=== PATIENT | male | born 1970 | race Native Hawaiian/Other Pacific Islander ===

== ENCOUNTER → 2022-04-29 | Outpatient (CLI) | payer BC ==
[2022-04-29 22:26] LABS: HCT 41.6 % (39.6-50.0); HGB 12.5 g/dL (13.0-17.0); MCH 26.4 pg (27.0-32.0); MCV 87.8 fL (80.0-97.0); Mean Platelet Volume 10.9 fL (9.5-12.2); NRBC Per 100 WBC 0 /100 WBCS (0.0-0.0); Platelet Count 249 X 10*3/uL (140-440); RBC 4.74 X 10*6/uL (4.40-5.60); WBC 7.82 X 10*3/uL (4.50-10.00)
[2022-04-29 22:44] LABS: African American GFR (CKD) 121.5 (60.0-200.0); Anion Gap 11.6 mmol/L (10.00-18.00); Blood Urea Nitrogen 14.4 mg/dL (9.0-27.0); Carbon Dioxide 25.5 mmol/L (20.0-27.5); Non-African American GFR(CKD) 104.8 (60.0-200.0)
== END | disposition home or self-care (01) ==
LOC: LABPAT 14:02
PROVIDERS: ATTEND Internal Medicine Interventional Cardiology
DX: Z01.812 Encounter for preprocedural laboratory examination (principal); R06.02 Shortness of breath
CPT/HCPCS: 80051; 82565; 84520; 85027

== ENCOUNTER 2022-05-04 12:50 | Day surgery (SDC) | payer BC ==
[2022-05-02 11:27] VITALS: BMI 39.5
[~2022-05-04 12:50] MED LIST: ALPRAZolam 0.25 MG TAB PO PRN; ALPRAZolam 0.5 MG TAB PO PRN; ASPIRIN 325 MG TAB PO STA; ATORVASTATIN 80 MG TAB PO STA; HEPARIN SODIUM,PORCINE 10,000 UNIT in SODIUM CHLORIDE 0.9% 1,000 ML IRRIGATION PRN; HEPARIN SODIUM,PORCINE 2,500 UNIT in SODIUM CHLORIDE 0.9% 250 ML IRRIGATION PRN; NITROGLYCERIN SL TABS 0.4 MG TAB SUBLINGUAL PRN
[2022-05-04] MEDS ORDERED: SODIUM CHLORIDE 0.9% 1,000 ML IV ONE (13:24)
[2022-05-04 13:45] LABS: Glucose,Whole Blood 98 mg/dL (70-110)
[2022-05-04] MEDS ORDERED: HEPARIN SODIUM 1,000 UN/ML (10ML VL) ONE (14:29)
[2022-05-04] MEDS ORDERED: VERAPAMIL 2.5 MG/ML 2 ML AMP ONE (14:29)
[2022-05-04] MEDS ORDERED: MIDAZOLAM 2 MG/2 ML VIAL IVP ONE (14:37)
[2022-05-04] MEDS: LIDOCAINE 1% INJ 10MG/ML (5 ML VIAL-PF) SQ ONE ×2 (14:38→14:41)
[2022-05-04] MEDS ORDERED: MIDAZOLAM 2 MG/2 ML VIAL IV ONE (14:40)
[2022-05-04] MEDS ORDERED: VERAPAMIL SYRINGE (5 MG/10 ML) INTRAARTER ONE (14:41)
[2022-05-04] MEDS ORDERED: HYDROmorphone 0.5 MG/0.5 ML SYRINGE IVP ONE (14:44)
[2022-05-04] MEDS ORDERED: HEPARIN SODIUM 1,000 UN/ML (10ML VL) IV ONE (14:46)
[2022-05-04] MEDS ORDERED: IOPAMIDOL-370 100ML BTL INJ ONE (14:51)
[2022-05-04] MEDS ORDERED: RX INFO: IV CONTRAST WAS GIVEN 1 EACH MISC MISCELLANE PRN (15:08)
--- NOTE | 2022-05-04 15:13 | P.PCN ---
Date of Procedure: 05/04/22 Operative Findings: CARDIAC CATHETERIZATION PERFORMING PHYSICIAN: Mayco Valle MD, RPVI PROCEDURE PERFORMED: 1. Selective right and left coronary angiogram INDICATION: Symptoms of shortness of breath in this 51-year-old gentleman who underwent a stress test and that came in to be abnormal. COMPLICATION: None APPROACH: Right radial artery LEVEL OF SEDATION: Moderate with a sedation length of 14 minutes PROCEDURE DESCRIPTION: After obtaining an informed consent, the patient was brought to cardiac labor employment associate. Local anesthesia was performed using lidocaine subcutaneously. The right radial artery was cannulated using Seldinger technique, the guidewire passed easily, following that we advanced a 5-Japanese sheath dilator assembly, the wire and dilator were removed and sheath was flushed. Following that, 2 mg of verapamil along with 5000 unit heparin were given. Selective right and left coronary angiogram using a 6-Japanese JR4 and JL 3.5 catheters. The procedure was completed there was no complication. SELECTIVE CORONARY ANGIOGRAM: The right coronary artery: Large caliber vessel and a dominant vessel. The RCA in the midportion has mild disease only. Distally bifurcates into PDA and PLV branches both appeared to be angiographically normal in the RCA proximally is angiographically normal. Left main: It is angiographically normal. Bifurcates into an LCx and LAD The left circumflex: Large caliber vessel nondominant history the LCx system is angiographically normal. Gives rises into the first and second obtuse marginal branches both appeared to be angiographically normal The left anterior descending artery: Large caliber vessel. Its angiographically normal and gives rises into a large diagonal branch which appeared to be angiographically normal CONCLUSION: 1. Mild nonobstructive coronary artery disease POSTPROCEDURE MANAGEMENT: Medical treatment and follow-up with the patient
[2022-05-04] MEDS ORDERED: SODIUM CHLORIDE 0.9% 1,000 ML IV SCH (15:15)
[2022-05-04 16:27] VITALS: PULSE 70
[2022-05-04] MEDS: SODIUM CHLORIDE 0.9% 1,000 ML in EMPTY BAG 1 BAG IV SCH ×2 (16:57→17:00)
[2022-05-04 17:22] VITALS: BP 123/75; RESP 18; TEMP 97.9
== END 2022-05-04 20:05 | disposition home or self-care (01) ==
LOC: CATHCVL 12:50 → 6NMEDSUR 16:31 → CATHCVL 20:05
PROVIDERS: ATTEND Internal Medicine Interventional Cardiology
DX: I25.10 Atherosclerotic heart disease of native coronary artery without angina pectoris (principal); I08.3 Combined rheumatic disorders of mitral, aortic and tricuspid valves; I42.9 Cardiomyopathy, unspecified; I10 Essential (primary) hypertension; E78.00 Pure hypercholesterolemia, unspecified; E11.9 Type 2 diabetes mellitus without complications; E78.5 Hyperlipidemia, unspecified; Z79.899 Other long term (current) drug therapy
CPT/HCPCS: 93454; C1769; C1894; J2250; J2001; J1644; J1170; Q9967

== ENCOUNTER → 2024-09-20 | Day surgery (SDC) | payer BC ==
[~2024-09-20] MED LIST changes: -ALPRAZolam 0.25 MG TAB PO PRN; -ALPRAZolam 0.5 MG TAB PO PRN; -ASPIRIN 325 MG TAB PO STA; -ATORVASTATIN 80 MG TAB PO STA; -HEPARIN SODIUM,PORCINE 10,000 UNIT in SODIUM CHLORIDE 0.9% 1,000 ML IRRIGATION PRN; -HEPARIN SODIUM,PORCINE 2,500 UNIT in SODIUM CHLORIDE 0.9% 250 ML IRRIGATION PRN; +LIDOCAINE 2% (PF) 20 MG/ML 5 ML VIAL ONE; -NITROGLYCERIN SL TABS 0.4 MG TAB SUBLINGUAL PRN; +PROPOFOL 10 MG/ML 20 ML VIAL IV ONE; +SODIUM CHLORIDE 0.9% 500 ML IV SCH
[2024-09-20] MEDS: SODIUM CHLORIDE 0.9% 500 ML 500 ML IV ONE (06:58)
[2024-09-20 07:01] LABS: Glucose,Whole Blood 157 mg/dL (70-110)
[2024-09-20 07:32] LABS: African American GFR (CKD) >90 (>60 ml/min/1.73 sqM); Anion Gap 6 mmol/L; Blood Urea Nitrogen 21 mg/dL (9-20); Carbon Dioxide 28 mmol/L (22-30); Chloride 103 mmol/L (98-107); Digoxin 0.6 ng/mL; Glucose 155 mg/dL (74-99); Non-African American GFR(CKD) >90 (>60 ml/min/1.73 sqM); Potassium 4.3 mmol/L (3.5-5.1); Sodium 137 mmol/L (137-145)
[2024-09-20 08:31] VITALS: TEMP 97
[2024-09-20 08:55] VITALS: RESP 16
[2024-09-20 09:17] LABS: Glucose,Whole Blood 135 mg/dL (70-110)
[2024-09-20 09:21] VITALS: BP 116/81; PULSE 97
--- NOTE | 2024-09-20 13:08 | P.PCN ---
Date of Procedure: 09/20/24 Operative Findings: Cardioversion Report Performing physician Mayco Valle M.D. Procedure performed Successful cardioversion of atrial fibrillation to normal sinus mechanism using 200 J at second attempt Indication Symptomatic atrial fibrillation Complication None Level of sedation The procedure was performed under deep sedation using propofol with [employer]IST in the room Procedure description After obtaining an informed consent the patient was brought to the recovery room. Sedation was introduced using propofol with [employer] EL[employer]IST in the room. Subsequently the patient cardioverted from atrial fibrillation to normal sinus mechanism using 200 J and first attempt Conclusion Successful cardioversion of atrial fibrillation to normal sinus mechanism using 200 J Postprocedure management Continue the current medical regimen Continue oral anticoagulation Follow-up with the patient
== END ==
LOC: OR 06:10
PROVIDERS: ATTEND Internal Medicine Interventional Cardiology
DX: I48.0 Paroxysmal atrial fibrillation (principal); I10 Essential (primary) hypertension; E11.8 Type 2 diabetes mellitus with unspecified complications; E78.5 Hyperlipidemia, unspecified; Z86.79 Personal history of other diseases of the circulatory system; Z79.01 Long term (current) use of anticoagulants
CPT/HCPCS: 93312; 93320; 93325; 92960; 80048; 80162; J2704; J2003